=== PATIENT | female | born 1990 | race African-American/Black ===

== ENCOUNTER 2024-09-29 11:00 | Emergency (ER) | payer OTHER ==
[~2024-09-29] VITALS: Ht 165.1 cm; Wt 56.8 kg
[2024-09-29 11:07] VITALS: TEMP 100
[2024-09-29 11:17] LABS: COVID AG,FIA SOURCE NASAL SWAB
[2024-09-29 11:36] LABS: RAPID GROUP A STREP POSITIVE (NEGATIVE)
[2024-09-29 11:38] VITALS: BP 111/61; PULSE 79; RESP 16; O2SAT 99
[2024-09-29 11:40] LABS: SARS-COV2 (COVID) ANTIGEN,FIA Negative (Negative)
[2024-09-29 11:41] LABS: INFLUENZA TYPE A NEGATIVE FOR TYPE A (NEGATIVE); INFLUENZA TYPE B NEGATIVE FOR TYPE B (NEGATIVE)
[2024-09-29] MEDS ORDERED: AMOX500C2 PO (11:48)
[2024-09-29] MEDS: ACETAMINOPHEN 325 MG TABLET PO ONE (11:59)
[2024-09-29] MEDS: DEXAMETHASONE 4 MG TABLET PO ONE (11:59)
[2024-09-29] MEDS: AMOXICILLIN TRIHYDRATE 250 MG CAPSULE PO ONE (12:00)
[2024-09-29] MEDS: IBUPROFEN 400 MG TABLET PO ONE (12:00)
== END 2024-09-29 12:12 | disposition home or self-care (01) ==
LOC: EMS 11:00
DX: J02.0 Streptococcal pharyngitis (principal); Z20.822 Contact with and (suspected) exposure to COVID-19
CPT/HCPCS: 99284; 87426; 87430; 87804; J8540; Z7502; Z7610

== ENCOUNTER 2024-12-15 09:13 | Emergency (ER) | payer OTHER ==
[~2024-12-15] VITALS: Ht 160 cm; Wt 73.0 kg
[~2024-12-15 09:13] MED LIST: AMOX500C2 PO
[2024-12-15 09:18] VITALS: TEMP 100.3
[2024-12-15 09:31] LABS: COVID AG,FIA SOURCE NASAL SWAB
[2024-12-15 09:56] LABS: RAPID GROUP A STREP NEGATIVE (NEGATIVE)
[2024-12-15 10:01] LABS: INFLUENZA TYPE A NEGATIVE FOR TYPE A (NEGATIVE); INFLUENZA TYPE B NEGATIVE FOR TYPE B (NEGATIVE); SARS-COV2 (COVID) ANTIGEN,FIA Negative (Negative)
[2024-12-15] MEDS: CefTRIAXone 1 GM/DEXTROSE 50 ML IV ONE (10:07)
[2024-12-15] MEDS: DEXAMETHASONE SOD PHOS 4 MG/ML 5 ML VIAL IVP ONE (10:08)
[2024-12-15] MEDS: KETOROLAC TROMETHAMINE 30 MG/ML VIAL IVP ONE (10:08)
[2024-12-15] MEDS: ACETAMINOPHEN 325 MG TABLET PO ONE (10:35)
[2024-12-15] MEDS: DEXAMETHASONE SOD PHOS 4 MG/ML 5 ML VIAL IM ONE (10:35)
[2024-12-15 10:45] VITALS: BP 125/69; PULSE 69; RESP 17; O2SAT 98
== END 2024-12-15 10:55 | disposition home or self-care (01) ==
LOC: EMS 09:14
DX: J02.0 Streptococcal pharyngitis (principal); Z79.52 Long term (current) use of systemic steroids; Z20.822 Contact with and (suspected) exposure to COVID-19
CPT/HCPCS: 99284; 96365; 87426; 84703; 87430; 87804; 96372; J1885; J0696; J1100